=== PATIENT | male | born 1995 | race Hispanic/Latino ===

== ENCOUNTER 2017-08-26 19:10 | Emergency (ER) | payer OTHER ==
[2017-08-26 20:00] VITALS: BP 145/90; PULSE 119; RESP 20; TEMP 99.4; O2SAT 99
--- NOTE | 2017-08-26 20:29 | C.PDOC ---
History Of Present Illness 21 year old male presents to the ER with a complaint of body aches, cough, congestion, and sore throat that began today. Denies fever, sick contact or recent travel. Time Seen by Provider: 08/26/17 20:13 Chief Complaint (Nursing): Flu-like Symptoms History Per: Patient History/Exam Limitations: no limitations Onset/Duration Of Symptoms: Hrs Current Symptoms Are (Timing): Still Present Location Of Pain: Throat, Diffuse Myalgias Sick Contacts (Context): None Associated Symptoms: Sore Throat, Cough, Myalgias, Nasal Congestion. denies: Fever Ear Symptoms: Bilateral: None Recent travel outside of the [place]: No Past Medical History Reviewed: Historical Data, Nursing Documentation, Vital Signs Vital Signs: Last Vital Signs Temp 99.4 F 08/26/17 19:57 Pulse 119 H 08/26/17 19:57 Resp 20 08/26/17 20:37 BP 145/90 08/26/17 19:57 Pulse Ox 99 08/26/17 21:20 Surgical History: Tonsillectomy Family History: States: Unknown Family Hx - Social History Hx Tobacco Use: No Hx Alcohol Use: Yes (social) Hx Substance Use: No - Immunization History Hx Tetanus Toxoid Vaccination: No Hx Influenza Vaccination: No Hx Pneumococcal Vaccination: No Review Of Systems Constitutional: Negative for: Fever ENT: Positive for: Nose Congestion, Throat Pain Respiratory: Positive for: Cough Gastrointestinal: Negative for: Nausea, Vomiting Musculoskeletal: Positive for: Other (Body aches) Physical Exam - Physical Exam Appears: Non-toxic, No Acute Distress Skin: Normal Color, Warm, Dry Head: Atraumatic, Normacephalic Eye(s): bilateral: Normal Inspection, EOMI Ear(s): Bilateral: Normal Nose: Normal Oral Mucosa: Moist Throat: Normal, No Erythema, No Exudate Neck: Normal, Supple Chest: Symmetrical, No Tenderness Cardiovascular: Rhythm Regular, No Murmur Respiratory: Normal Breath Sounds, No Rales, No Rhonchi, No Wheezing Gastrointestinal/Abdominal: Soft, No Tenderness Extremity: Bilateral: Atraumatic, Normal Color And Temperature, Normal ROM Neurological/Psych: Oriented x3, Normal Speech Gait: Steady ED Course And Treatment O2 Sat by Pulse Oximetry: 99 (Room air) Pulse Ox Interpretation: Normal Medical Decision Making Medical Decision Making: Patient with multi-symptom complaints, likely viral. Patient has not received Flu vaccine this season. Based on history, exam findings and widespread influenza will treat for Influenza. Patient appears non-toxic and in no distress. Rx given. Patient advised to rest, drink fluids and take medications for supportive treatment. Patient stable for discharge and given follow up instructions. Disposition Counseled Patient/Family Regarding: Diagnosis, Need For Followup, Rx Given - Disposition Referrals: Yoseph Flannery DO [Staff Provider] - Disposition: HOME/ ROUTINE Disposition Time: 20:35 Condition: GOOD Additional Instructions: Your prescription was sent to [facility] You have influenza. Take Tamiflu twice a day for 5 days. Take Tylenol or Motrin alternating every 4-6 hours for Fever 100.4F or higher. Rest and drink plenty of fluids. Try symptomatic relief. Symptoms can last 7-10 days. Follow up with your primary medical doctor or clinic in 2-5 days for further evaluation. Return to the emergency department at any time if symptoms persist or worsen. Prescriptions: Benzonatate [Tessalon Perles] 100 mg PO TID #30 sgl Ibuprofen [Motrin] 1 tab PO Q8 #30 tab Oseltamivir [Tamiflu] 75 mg PO BID #9 cap Instructions: Influenza (ED) Forms: [facility] (Kyrgyz), Work Excuse - POA Present On Arrival: None - Clinical Impression Clinical Impression: Influenza - PA / WARNING COORDINATION METEOROLOGIST / Resident Statement / has reviewed & agrees with the documentation as recorded. - Scribe Statement The provider has reviewed the documentation as recorded by the Scribjonah Soares All medical record entries made by the Scribe were at my direction and personally dictated by me. I have reviewed the chart and agree that the record accurately reflects my personal performance of the history, physical exam, medical decision making, and the department course for this patient. I have also personally directed, reviewed, and agree with the discharge instructions and disposition.
== END 2017-08-26 20:37 | disposition home or self-care (01) ==
LOC: C.ER 19:10
DX: J11.1 Influenza due to unidentified influenza virus with other respiratory manifestations (principal)